=== PATIENT | male | born 1965 | race Caucasian/White ===

== ENCOUNTER → 2018-12-02 10:18 | Outpatient (CLI) | payer OTHER, SELFPAY ==
--- NOTE | 2018-12-02 10:21 | DI.RAD.S_ITS ---
PROCEDURE: XR HIP W PEL IF DONE LT 2V INDICATIONS: hip pain decreased range of motion TECHNIQUE: 2 views of the hip were acquired. COMPARISON: None. FINDINGS: Bones: Moderate to severe left hip joint osteoarthritic changes are seen with joint space narrowing, subchondral sclerosis and subchondral cyst formation. Marginal osteophyte formation is also noted. No fractures or dislocations. No suspicious bony lesions. No evidence of avascular necrosis of femoral head. The visualized pelvic ring appears intact. Soft tissues: No suspicious soft tissue calcifications or masses. IMPRESSION: Moderate to severe left hip joint osteoarthritis. No fracture or dislocation. No evidence of avascular necrosis. Dictated by: Raymundo Ko M.D. on 12/02/2018 at 10:58 Approved by: Raymundo Ko M.D. on 12/02/2018 at 11:10
--- NOTE | 2018-12-02 10:21 | DI.RAD.S_ITS ---
PROCEDURE: XR LUMBAR SPINE 2-3V INDICATIONS: hip pain decreased range of motion TECHNIQUE: 3 views of the lumbar spine were acquired. COMPARISON: [facility], , -SPINE 2-3 VIEWS, 01/21/2015, 13:45. FINDINGS: Bones: 5 [id number] vertebrae are present. There is normal bony alignment. Moderate degenerative disc disease at L5-S1 level is seen with degenerative endplate changes and bilateral facet arthrosis. No vertebral body compression fractures. No suspicious bony lesions. Soft tissues: Overlying bowel gas pattern is normal. No suspicious soft tissue calcifications. IMPRESSION: Degenerative disc disease at L5-S1 level. No compression fracture or spondylolisthesis. Dictated by: Raymundo Ko M.D. on 12/02/2018 at 11:10 Approved by: Raymundo Ko M.D. on 12/02/2018 at 11:11
== END ==
PROVIDERS: Family Provider Family Medicine; PCP Family Medicine; Visit Provider Family Medicine
DX: M16.12 Unilateral primary osteoarthritis, left hip (principal); M51.37 Other intervertebral disc degeneration, lumbosacral region
CPT/HCPCS: 72100; 73502; 81001

== ENCOUNTER → 2018-12-13 12:17 | Outpatient (CLI) | payer OTHER, SELFPAY ==
[2018-12-13 12:59] LABS: Add Manual Diff / Slide Review NO; Basophils Absolute Auto 100 /uL (0-100); Basophils Percent Auto 1.2 % (0-2); Eosinophils Absolute Auto 100 /uL (0-450); Eosinophils Percent Auto 1.5 % (2-4); Hematocrit 43.5 % (41-53); Hemoglobin 15.3 g/dL (13.5-17.5); Lymphocytes Absolute Auto 2600 /uL (1100-4500); Lymphocytes Percent Auto 33.3 % (25-40); Mean Corpuscular HGB Conc 35.2 % (30-36); Mean Corpuscular Hemoglobin 31.4 PG (26-34); Monocytes Absolute Auto 500 /uL (0-900); Neutrophils Absolute Auto 4500 /uL (1500-7000); Platelet Count 278 X10^3/uL (150-400); Red Blood Cell Count 4.88 X10^6/uL (4.5-5.9); Red Cell Distribution Width 13.2 % (11.6-14.8); White Blood Cell Count 7.7 X10^3/uL (4.5-11.0)
[2018-12-13 13:48] LABS: Blood Urea Nitrogen 18 mg/dL (9-20); Calcium 9.5 mg/dL (8.4-10.2); Carbon Dioxide 26 mmol/L (22-32); Chloride 104 mmol/L (98-107); Estimated Glomerular Filt Rate > 60.0 mL/min (>60); Glucose 117 mg/dL (70-100); HEMOLYSIS < 15 (0-50); Potassium 4.2 mmol/L (3.4-5.1); Sodium 140 mmol/L (137-145)
[2018-12-13 14:57] LABS: Hemoglobin A1C% w Est Avg Glu 6.3 % (4.0-6.0)
== END ==
PROVIDERS: Family Provider Family Medicine; PCP Family Medicine; Visit Provider Orthopaedic Surgery
DX: Z01.818 Encounter for other preprocedural examination (principal); Z01.812 Encounter for preprocedural laboratory examination; N39.9 Disorder of urinary system, unspecified; Z13.1 Encounter for screening for diabetes mellitus; R73.9 Hyperglycemia, unspecified
CPT/HCPCS: 36415; 80048; 83036; 85025; 93005

== ENCOUNTER → 2018-12-31 10:51 | Outpatient (CLI) | payer OTHER, SELFPAY ==
--- NOTE | 2018-12-31 10:52 | DI.RAD.S_ITS ---
PROCEDURE: FL UPPER GI W AIR INDICATIONS: esophgeal diverticulum COMPARISON: None. FINDINGS: KUB: Preprocedural brand leader film demonstrates a normal bowel gas pattern. No suspicious abdominal calcifications. Visualized solid organ contours appear normal. Bony structures appear unremarkable. Esophagus: Esophageal mucosa is normal on air-contrast views. On single-contrast views, there is normal esophageal peristalsis. No strictures, extrinsic mass effects, or diverticula. Severe esophageal reflux, which reaches the level of the thoracic inlet. Stomach: The stomach is normally distensible, with normal rugal fold thickness. No mucosal masses or ulcers. Pylorus and duodenal bulb appear normal in morphology. Duodenal folds are normal in thickness as well. IMPRESSION: Severe esophageal reflux. No diverticulum radiographically identified. Dictated by: Jason Cooper M.D. on 12/31/2018 at 12:17 Approved by: Jason Cooper M.D. on 12/31/2018 at 12:19
== END ==
PROVIDERS: Family Provider Family Medicine; PCP Family Medicine; Visit Provider Family Medicine
DX: K22.5 Diverticulum of esophagus, acquired (principal); K21.9 Gastro-esophageal reflux disease without esophagitis
CPT/HCPCS: 74247

== ENCOUNTER → 2019-01-09 15:27 | Outpatient (CLI) | payer OTHER, SELFPAY ==
--- NOTE | 2019-01-09 15:30 | DI.ECHO.S_ITS ---
[facility]---------+ [facility] +---------+ : : [address] : : : : [id number] : : : : Phone: [phone]+ Echocardiogram Report + + :Name: ANGELIC RICO Study Date: 01/09/2019 Height: 70 in : :[facility] Weight: 213 lb : : Gender: Male BSA: 2.1 m2 : :: 1965 Age: 53 yrs BP: 178/82 mmHg: :Reason For Study: Arrhythmia, SVT : : Performed By: Elisabeth Arora : :Referring: ANNI YOST : + + Interpretation Summary Left ventricular size is at the upper limits of normal with normal left ventricular wall thickness. Left ventricular systolic function is normal without focal wall motion abnormalities with the ejection fraction grossly estimated to be 50-60% with considerable [id number] variability because of frequent PVCs. Diastolic function could not be accurately assessed due to unobtainable data. The right ventricle is normal in size and function. The right ventricular systolic pressure is estimated to be at least 31 mmHg based on an estimated right atrial pressure of 3 mm Hg. The left atrium is severely dilated and the right atrium is moderately dilated. There is mild mitral regurgitation but there is no other significant valvular heart disease. The ascending aorta and aortic arch are at the upper limits of normal in size. The heart rate ranged between 81-99 bpm with frequent PVCs during the exam. Procedure: A two-dimensional transthoracic echocardiogram with color flow and Doppler was performed. The study quality was technically good. There is no prior echocardiogram noted for this patient. The heart rate ranged between 81- 99 bpm during the study. The patient had frequent PVCs during the exam. Left Ventricle: Left ventricular size is at the upper limits of normal. There is normal left ventricular wall thickness. Left ventricular systolic function is normal without focal wall motion abnormalities. Left ventricular ejection fraction is estimated to be 50-60% with beats to be variability because of frequent PVCs. Diastolic function could not be accurately assessed due to unobtainable data. Right Ventricle: The right ventricle is normal in size and function. Atria: The left atrium is severely dilated. The right atrium is moderately dilated. The interatrial septum is intact with no evidence for an atrial septal defect. Mitral Valve: The mitral valve is grossly normal. There is mild mitral regurgitation. Aortic Valve: The aortic valve is trileaflet. The aortic valve opens well. No aortic regurgitation is present. Tricuspid Valve: The tricuspid valve is normal in structure and function. There is trace tricuspid regurgitation. The right ventricular systolic pressure is estimated to be at least 31 mmHg based on an estimated right atrial pressure of 3 mm Hg. Pulmonic Valve: The pulmonic valve is normal in structure and function. There is no pulmonic valvular regurgitation. There is no other significant valvular heart disease. Great Vessels: The aortic root is normal size. The ascending aorta is at the upper limits of normal in size. The aortic arch is at the upper limits of normal in size. The IVC is dilated (diameter is greater than 2.1 cm) yet it collapses greater than 50% with a sniff. This suggests a right atrial pressure of 8 mm Hg. Pericardium/ Pleura There is no pericardial effusion. There is no pleural effusion. MMode/2D Measurements & Calculations LVIDd: 5.8 cm Ao root diam: 3.6 cm LVIDs: 4.7 cm Aortic Jxn: 3.1 cm FS: 19.2 % asc Aorta Diam: 3.3 cm EPSS: 1.7 cm Ao Arch Diam (Prox Trans): 3.0 cm IVSd: 1.0 cm LVPWd: 1.1 cm LV calvo. diameter/BSA (cm/m^2): 2.7 LV sys. diameter/BSA (cm/m^2): 2.2 LA dimension: 4.8 cm RA long axis: 6.2 cm LA A2 area: 27.6 cm2 RA area: 26.5 cm2 LA A4 area: 29.7 cm2 RA vol: 96.6 ml LA length (vol): 6.4 cm RA : 45.0 ml/m2 LA vol: 107.9 ml IVC diam: 2.4 cm LA vol index: 50.3 ml/m2 RVDd major: 5.7 cm RVD1 (basal): 4.2 cm RVD2 (mid): 3.4 cm Doppler Measurements & Calculations Ao V2 max: 159.5 cm/sec MV P1/2t: 63.3 msec Ao V2 mean: 108.8 cm/sec Ao max P.2 mmHg Ao mean P.4 mmHg Ao V2 VTI: 33.8 cm TR max jose: 267.6 cm/sec MV P1/2t max jose: 107.5 cm/sec TR max P.7 mmHg MVA(P1/2t): 3.5 cm2 PA V2 max: 104.1 cm/sec PA V2 mean: 66.4 cm/sec PA mean P.1 mmHg PA Accel Time: 0.15 sec Reading Physician:PAU
== END ==
PROVIDERS: PCP Family Medicine; Visit Provider Family Medicine
DX: I34.0 Nonrheumatic mitral (valve) insufficiency (principal); I47.1 Supraventricular tachycardia
CPT/HCPCS: 93306

== ENCOUNTER → 2019-03-28 11:40 | Outpatient (CLI) | payer OTHER, SELFPAY ==
[2019-03-28 11:54] LABS: RBC Urine None Seen (0-5/HPF)
[2019-03-28 12:09] LABS: Hematocrit 42.8 % (41-53); Hemoglobin 14.9 g/dL (13.5-17.5); Mean Corpuscular HGB Conc 34.8 % (30-36); Mean Corpuscular Hemoglobin 31.4 PG (26-34); Mean Corpuscular Volume 90.2 fL (80-100); Platelet Count 234 X10^3/uL (150-400); Red Blood Cell Count 4.74 X10^6/uL (4.5-5.9); Red Cell Distribution Width 13.5 % (11.6-14.8); White Blood Cell Count 6.4 X10^3/uL (4.5-11.0)
[2019-03-28 12:10] LABS: Appearance Urine UA CLEAR; Bilirubin Urine UA NEGATIVE (NEGATIVE); Color Urine UA YELLOW; Glucose Urine UA NEGATIVE (Negative); Ketones Urine UA NEGATIVE (NEGATIVE); Leukocyte Esterase Urine UA NEGATIVE (NEGATIVE); Nitrite Urine UA NEGATIVE (Negative); Occult Blood Urine UA NEGATIVE (Negative); Protein Urine UA NEGATIVE (Negative); Urobilinogen Urine UA 0.2 E.U./dL (0.2)
[2019-03-28 12:21] LABS: BUN Creatinine Ratio 21.1 (6-22); Blood Urea Nitrogen 19 mg/dL (9-20); Calcium 9.4 mg/dL (8.4-10.2); Carbon Dioxide 29 mmol/L (22-32); Chloride 105 mmol/L (98-107); Estimated Glomerular Filt Rate > 60.0 mL/min (>60); Glucose 135 mg/dL (70-100); HEMOLYSIS < 15 (0-50); Potassium 4.9 mmol/L (3.4-5.1); Sodium 140 mmol/L (137-145)
[2019-03-28 12:22] LABS: Hemoglobin A1C% w Est Avg Glu 6.1 % (4.0-6.0)
[2019-03-28 13:07] LABS: Bacteria Urine None Seen
[2019-03-28 13:08] LABS: Culture Indicated Urine Cult Not Indicated; Mucus Urine 1+ (Negative); Squamous Epithelial Cell Urine 0-1 /HPF (0-5/HPF); WBC Urine 1-5/HPF (0-5/HPF)
== END ==
PROVIDERS: PCP Family Medicine; Visit Provider Orthopaedic Surgery
DX: N39.0 Urinary tract infection, site not specified (principal); R73.9 Hyperglycemia, unspecified; Z01.818 Encounter for other preprocedural examination
CPT/HCPCS: 36415; 80048; 81001; 83036; 85027

== ENCOUNTER 2019-04-22 10:15 | Inpatient (IN) | payer OTHER, SELFPAY ==
[2019-04-10 08:50] VITALS: BMI 31.2
[2019-04-22] VITALS (9 sets, daily range): BP systolic 113–179; BP diastolic 62–85; PULSE 60–85; RESP 12–16; TEMP 36.4–36.8; O2SAT 94–98; BMI 30.8
--- NOTE | 2019-04-22 | DI.RAD.S_ITS ---
PROCEDURE: [id number] W PEL IF PERFORMED INDICATIONS: INTRA OPERATIVE ANTERIOR LEFT HIP TECHNIQUE: Multiple intraoperative fluoroscopic views of the left hip were acquired. COMPARISON: None. FINDINGS: Bones: Multiple intraoperative views demonstrate ORIF of the left hip. IMPRESSION: Multiple intraoperative fluoroscopic views of left hip ORIF. Dictated by: Donna Green M.D. on 04/22/2019 at 17:53 Approved by: Donna Green M.D. on 04/22/2019 at 17:54
--- NOTE | 2019-04-22 06:00 | DI.RAD.S_ITS ---
PROCEDURE: XR HIP W PEL IF DONE LT 2V INDICATIONS: left PARKER, anterior TECHNIQUE: 2 view(s) of the hip acquired. COMPARISON: None. FINDINGS: Bones: Patient is status post left hip arthroplasty, with hardware components in expected positions. The hip joint appears congruent. The visualized bony structures appear intact. Soft tissues: Overlying postoperative changes are noted. No suspicious soft tissue densities. IMPRESSION: Status post left ORIF. Dictated by: Donna Green M.D. on 04/22/2019 at 18:21 Approved by: Donna Green M.D. on 04/22/2019 at 18:21
[2019-04-22] MEDS: ACETAMINOPHEN 325 MG TABLET 975 MG PO ×2 (10:52→21:19)
[2019-04-22] MEDS: CELECOXIB 200 MG CAPSULE PO (10:52)
[2019-04-22] MEDS: PREGABALIN 75 MG CAPSULE PO (10:54)
[2019-04-22] MEDS: LACTATED RINGERS 1,000 ML 42 ML IV ×2 (11:20→16:49)
[2019-04-22] MEDS: VANCOMYCIN 1,000 MG/200 ML PIGGYBACK 200 MG IV (11:23)
[2019-04-22] MEDS: FAMOTIDINE 20 MG/50 ML PIGGYBACK 200 MG IV (12:51)
--- NOTE | 2019-04-22 12:59 | PM.PREOP ---
Pre-operative Note Interval Note History & Physical reviewed/Exam performed by Physician: Yes Changes to H&P: No
--- NOTE | 2019-04-22 12:59 | PM.OP.1 ---
Operative Date/Time/Diagnoses Date of procedure: 04/22/19 Time of procedure: 13:29 Pre-op diagnosis: left hip OA Post-op diagnosis: same Procedure & Clinicians Procedure: Left hip OA Same procedure as scheduled: Yes Indications: The patient has had progressively worsening left hip pain with radiographic changes consistent with arthritis. Non-operative management has failed and the patient has requested total hip replacement. The risks, benefits and alternatives to surgery were discussed with the patient prior to proceeding. Risks discussed included, but were not limited to, failure to relieve pain, leg length discrepancy, dislocation, stiffness, infection, nerve damage, deep venous thrombosis, pulmonary embolism, stroke, coma, heart attack, permanent paralysis and , as well as the potential need for eventual revision of the prosthetic. Surgeon: Julia Mahoney Director Financial Services: Charisma Chacko Anesthesia Type: General and Spinal Operative Notes Findings: Severe left hip osteoarthritis, good quality bone, acceptable stability Closure Type: primary Specimen(s): none sent Prosthetic devices, grafts, tissues, transplants, or devices: [employer]hew 54 R3 cup, size 6 high offset anthology, -3 x 36mm Estimated Blood Loss (mL): 250 Blood products transfused: none Procedure in detail: The patient was brought to the operating room. Patient was carefully positioned in the supine position. Time-out was performed and antibiotics were given. Anesthesia was induced. He was positioned in the on the table in order to allow hyperextension of the hip. The left lower extremity was prepped and draped in a standard sterile fashion. An anterior left hip incision was made 1 fingerbreadth lateral to the anterior superior iliac spine and extended distally towards the greater trochanter. Dissection was carried out through skin and subcutaneous tissues. The skin and subcutaneous tissues were carefully injected with Marcaine with epi. Superficial hemostasis was achieved. The fascia over the tensor fascia elodia was defined and incised with a knife. Two Allis clamps were used to grasp the fascia. Tensor fascia elodia was retracted laterally. A gelpi retractor was placed. Dissection was carried out down along the neck. The circumflex vessels were carefully identified and cauterized with the Aqua Mantis. There was good visualization of the femoral neck. A Cobra was placed superior to the neck and the gluteus fibers were carefully stripped from that superior aspect of the capsule. A 2nd retractor was placed along the inferior aspect of the neck. The rectus insertion along the capsule was partially released. A 3rd retractor that was then gently placed over the rim of the acetabulum under the rectus. Capsule was carefully incised and released from the intertrochanteric line circumferentially superior to the mid sagittal line and inferiorly to the mid sagittal line until the lesser trochanter was palpable. A tag stitch was placed both in the superior and inferior limb of the capsular insertion. Along the acetabulum capsule was also released up to the mid sagittal 12:00 position. A portion of the labrum was resected. A saw was used to perform an osteotomy at the level of the intertrochanteric line and the junction of the superior femoral neck leaving approximately 1 finger breath of residual inferior neck above the lesser trochanter. A 2nd cut was made along the femoral neck at the base of the head and a napkin ring of neck was removed. Corkscrew was placed in the femoral head and the head was removed without difficulty. Retractors were then repositioned around the acetabulum. Residual labrum was resected and additional osteophytes were removed. A reamer that was 4 mm below the templated size was placed by hand in the acetabulum and it was reamed to centralize the acetabulum. It was then reamed up to 2 under the templated size and fluoroscopy was brought in to confirm the position of the reaming and depth of reaming. I reamed 1 under the anticipated size. A trial cup was placed and noted that it was appropriately sized and fluoroscopy confirmed position and depth. The component was open and inserted without difficulty fluoroscopic imaging was used to confirm that the cup had been adequately seated and was well positioned. Neutral poly liner was placed. The cup was tested and noted to be stable. Attention was then directed to the femur. The femur was gently hyperextended additional capsular release was performed as needed in order to allow adequate visualization of the proximal femur with elevation of the femur. Patient was placed in a hyperextended slightly adducted position with maximum external rotation. Box osteotome was used to check for any residual neck as well as sclerotic bone along the trochanter. [place] pepper was placed in the femur. Additional broaching was performed. Canal finder was used to determine the alignment of the canal and position. Size 1 broach was placed. The canal was then appropriately broached up to the templated size as long as there was adequate stability of the broach and serial advancement of the broach without excessive impingement. Specific attention was directed at avoiding varus attempting to direct the distal aspect of the broach more anteriorly and avoiding excessive anteversion. Trial reduction showed acceptable range of motion, good stability, no posterior impingement, orthodox of leg length and appropriate lateral shuck. I also hyperflexed the hip and checked that there was no impingement anteriorly and there was good stability with flexion, abduction and internal rotation. Extended offset stem was more stable in max hyperextension and external rotation. The stem was placed without difficulty. Repeat trial reduction and x-ray showed acceptable overall position, length, and no evidence of the femoral fracture. Final head was placed. Wound was meticulously irrigated with normal saline. The hip was reduced and additional Exparel and Marcaine were injected. The capsule was closed with interrupted nonabsorbable sutures. The fascia of the tensor was closed with interrupted and running Vicryl. No drain was placed. Any tensor fascia elodia muscle that appeared to be contused or injured which was a minimal amount was carefully resected. Capsule around the tensor was injected with Exparel and Marcaine. The skin was closed with barbed stitches for the subcutaneous tissue and skin. We also used surgical glue. The wound was dressed sterilely. Brief Betadine soak was also used and was meticulously irrigated with normal saline. Patient was transferred to recovery room in satisfactory condition. Complications: none Post-operative Condition: stable Disposition: Acute Care Plan for aftercare: The patient will be maintained on a standard total hip replacement protocol with weight bearing as tolerated and anterior hip precautions. The patient will receive Aspirin and sequential compression devices for DVT prophylaxis. The patient will be discharged home when safe for the home environment.
[2019-04-22] MEDS: CEFAZOLIN 2 GM/100 ML FROZ.PIGGY IV ×2 (13:45→21:20)
--- NOTE | 2019-04-22 14:26 | SUR.OPER ---
Supine, head on pillow, torso on padded Pilger table. Patient's groin at post end of table. Non-operative arm on foam padding with blanket over arm, taped securely to bed several times. Operative arm secured on arm boards <90 degrees abduction.
[2019-04-22] MEDS: BUPIVACAINE 0.25% W/ EPI 30 ML VIAL 60 ML INJ (14:32)
[2019-04-22] MEDS: BUPIVACAINE LIPOSOME 266 MG/20 ML VIAL INJ (14:33)
[2019-04-22] MEDS: SODIUM CHLORIDE IRRIG SOLUTION 250 ML, POVIDONE-IODINE SPONGE STICKS 1 APPLIC IRR (14:34)
[2019-04-22] MEDS: LACTATED RINGERS 1,000 ML 125 ML IV (19:10)
[2019-04-22] MEDS: DOCUSATE 100 MG CAPSULE PO (21:19)
[2019-04-22] MEDS: ASPIRIN EC 81 MG TABLET PO (21:19)
[2019-04-23 01:15] VITALS: BP 142/86; PULSE 60; RESP 16; TEMP 37; O2SAT 93
[2019-04-23] MEDS: LACTATED RINGERS 1,000 ML 125 ML IV (04:42)
[2019-04-23 04:45] VITALS: BP 126/90; PULSE 60; RESP 19; TEMP 36.9; O2SAT 97
[2019-04-23] MEDS: CEFAZOLIN 2 GM/100 ML FROZ.PIGGY IV (06:05)
[2019-04-23 07:10] LABS: Hematocrit 37.5 % (41-53)
[2019-04-23 08:00] VITALS: BP 114/69; PULSE 70; RESP 16; TEMP 36.9; O2SAT 98
--- NOTE | 2019-04-23 08:09 | PM.PNPO.1 ---
Subjective Subjective Date Patient Seen: 04/23/19 Time Patient Seen: 08:09 Interval history: POD 1 s/p L PARKER with Dr. Mahoney. Pain well controlled last night. He had to have an in and out catheter last night. He notes some previous symptoms in the past. He has not been up with PT yet. Exam Vital Signs (past 8 hours): - 04/23/19 01:15 04/23/19 04:45 Temperature 98.6 F 98.4 F Pulse Rate 60 60 Respiratory Rate 16 19 Blood Pressure 142/86 H 126/90 Pulse Oximetry 93 97 Oxygen Delivery Method Nasal Cannula Oxygen Flow Rate 0 Narrative Exam Narrative: Patient sitting in bedside chair in NAD. He is alert and oriented X3. Calves are soft, compressible, and nontender bilaterally. Sensation intact to light touch throughout BLEs. Objective Labs Result Diagrams: 04/23/19 06:47 Labs: Laboratory Results - last 24 hr 04/23/19 06:47 Hgb 13.0 L Hct 37.5 L Assessment & Plan Post-op Postoperative Procedures: Procedures Operation Date: 04/22/19 12:15 Actual Procedures Side Surgeon p Total Hip Arthroplasty/Anterior Approach Left Julia Deya Mahoney MD Patient will start Flomax today. He will mobilize with PT today. Continue current pain control. Continue ASA for VTE prophylaxis. If patient is voiding, mobilizing safely, and pain adequately controlled he could go home tonight or tomorrow morning. Quality VTE Deep Vein Thrombosis/Pulmonary Embolism Present on Admission: No
[2019-04-23] MEDS: ACETAMINOPHEN 325 MG TABLET 975 MG PO (10:01)
[2019-04-23] MEDS: DOCUSATE 100 MG CAPSULE PO (10:02)
[2019-04-23] MEDS: TAMSULOSIN 0.4 MG CAPSULE PO (10:02)
[2019-04-23] MEDS: ASPIRIN EC 81 MG TABLET PO (10:02)
--- NOTE | 2019-04-23 10:13 | PT.IIE ---
Current Diagnoses Unilateral primary osteoarthritis, left hip (04/22/19) Surgery Performed Operation Date: 04/22/19 12:15 Actual Procedures p Total Hip Arthroplasty/Anterior Approach(Left) - Julia Mahoney MD Surgical History (Last Updated 04/10/19 @ 09:25 by Tyra Knight, RN) Anesthesia (Resolved) H/O vasectomy (Acute) History of arthroscopy of both knees (Acute) Hx of appendectomy (Acute) Hx of hernia repair (Acute) Hx of tonsillectomy (Acute) Status post appendectomy (Resolved 1996) Status post hernia repair (Resolved) Medical History (Last Updated 04/10/19 @ 09:25 by Tyra Knight RN) Ankle pain (Chronic 2011) Anxiety (Chronic) Asthma (Acute) Asymptomatic PVCs (Acute) Chicken pox (Resolved) Cleft palate and cleft lip (Acute) Foot pain (Chronic 2011) Hiatal hernia (Acute) HLD (hyperlipidemia) (Acute) Hypertension (Chronic 1992) Osteoporosis (Chronic 2013) Pre-diabetes (Acute) Shoulder pain (Chronic 2002) Sleep apnea (Acute) SVT (supraventricular tachycardia) (Acute) Physical Therapy Inpatient Evaluation/Re-Eval M1 PT/OT-IP Prior Functional Status Start: 04/23/19 08:18 Freq: NEEDED Status: Active Protocol: Document 04/23/19 08:30 (Rec: 04/23/19 10:13 [email or web address]) Medical Review Prior Functional Status Medical History Reviewed Yes Diet/Fluid Consistency Regular Communication No deficits noted. Able to make needs known Mobility and Gait independent with mobility at home and community without using AD. Increased time taken to bend over and sit to stand due to hip pain Activities of Daily Living and IADL's independent with ADLs and IADLS without using AD. He was able to drive also. Social History Household Members spouse,children Living Arrangements House Number of Floors (Floors) One Floor Number of Stairs To Enter/Railing? 2 KACEY with wall support Home Environment Standard Height Toilet,Walk in Shower Home Equipment Front Wheel Walker,Straight Cane,Raised Toilet Seat w/ Armrests,Hand Held Shower Employment Status Unemployed Additional Social History Comment Pt lives in [place] with his and 2 dtrs and some pets. Pt expects to participate outpatient therapy at [facility] M2 PT-IP Current Condition Start: 04/23/19 08:18 Freq: NEEDED Status: Active Protocol: Document 04/23/19 08:30 HH (Rec: 04/23/19 10:13 [email or web address]) Physical Therapy Current Condition Current Condition Evaluation Date 04/23/19 Treatment Diagnosis L PARKER (anterior approach), difficulty in walking Onset Date 04/22/19 Precautions Anterior Hip Precautions No Hip Extension,No Hip External Rotation Weight Bearing Status Weight Bearing Status Weight Bear as Tolerated M3 PT-IP Subjective Start: 04/23/19 08:18 Freq: NEEDED Status: Active Protocol: Document 04/23/19 08:30 HH (Rec: 04/23/19 10:13 [email or web address]) Subjective Physical Therapy Visit Type Type Initial Evaluation Visit Start Time 08:30 Visit Stop Time 08:55 Total Visit Minutes 25 Number of FINANCIAL SALES ADVISOR Visits 0 Physical Therapy Visit Comments Patient Comments I want to use the bathroom Patient Goals To return home today with family. Therapy Pain Assessment Pain Present Pain Present Denied Pain M4 PT-IP Mobility and Gait Start: 04/23/19 08:18 Freq: NEEDED Status: Active Protocol: Document 04/23/19 08:30 HH (Rec: 04/23/19 10:13 [email or web address]) PT-Bed Mobility Assessment Scooting Scooting to Edge of Bed Standby Assistance PT-Transfer Assessment Sit to and From Stand Sit to and from Stand Standby Assistance,Use of Upper Extremities Equipment Transfer Assistive Device Gait Belt,Front Wheeled Walker Orthotic/Prosthetic Devices or Brace: No Transfers Transfer Destination Bed,Chair,Toilet Transfer Technique Stand Step Pivot Transfer Ability Level of Assist Standby Assistance,Use of Upper Extremities Comments Mobility Comments Pt was in chair upon assessment. He was able to sit <>stand, transfers with FWW SBA. He does lean towards his R side and used stagger stance during sit <> stand to reduce WB on L. Pt denies pain but did report he has been very used to this techniques due to his previous hip pain. Pt was aware to use small steps to avoid excessive hip ER. Gait Assessment Gait Gait Assistance Required: Standby Assistance Distance (Feet) 240 Able to Maintain Weight Bearing Status Yes During Gait Assistive Devices Assistive Device Gait Belt,Front Wheeled Walker Orthotic/Prosthetic Devices or Brace: No Gait Deviations General Gait Pattern Antalgic,Decreased Stride Length,Decreased Feet Clearance Factors Limiting Gait Function Factors Limiting Gait Function Decreased Activity Tolerance, Decreased Strength,Limited Range of Motion,Pain,Poor Balance Comments Gait Comments Pt amb 240 ft with FWW and SBA . Pt does have an antalgic gait with reduced stance phase on L LE. Needed cues to advance his RLE for longer step. Pt denies pain during session and very aware of his post op precautions by avoiding excessive hip extension and external rotation. Stair Climbing Assessment Technique/Endurance Stair Climbing Direction Ascend Stair Climbing Technique Step to Step Number of Steps Climbed 3 Query Text: Stair Climbing Set # Repetitions (reps) 2 Comments Stair Climbing Comments ascend= lead with RLE descend= lead with LLE PT-Balance Assessment Sitting Balance and Reactions Static Sitting Balance Ability Normal Dynamic Sitting Balance Ability Normal Standing Balance and Reactions Static Standing Balance Ability Normal Dynamic Standing Balance Ability Normal M5 PT-IP Objective Assessments Start: 04/23/19 08:18 Freq: NEEDED Status: Active Protocol: Document 04/23/19 08:30 HH (Rec: 04/23/19 10:13 [email or web address]) Orientation Orientation/Cognition Level of Alertness Alert Orientation Name,Age,Birthday,Month,Date, Year,Day of Week,Place, Situation Language Function Ability No Deficits Noted Safety Awareness Understands Safety Issues Memory Description No Deficits Noted Gross Range of Motion Upper Extremity ROM Assessment Within Functional Limits Lower Extremity ROM Assessment Left Impaired Strength Upper Extremity Strength Assessment Within Functional Limits Lower Extremity Strength Assessment Left Impaired Hip 4/5 Knee 4+/5 Coordination Assessment Gross Coordination Gross Coordination WNL Sensation Assessment Sensation Gross Sensation WNL Light Touch Intact Proprioception (Position) Intact Sensation Description Numbness Comments Sensation Comments numbness at surgical site Muscle Tone Muscle Tone WNL Yes M6 PT-IP Treatment Start: 04/23/19 08:18 Freq: NEEDED Status: Active Protocol: Document 04/23/19 08:30 HH (Rec: 04/23/19 10:13 [email or web address]) Physical Therapy Treatment Exercises Exercises Ankle Pumps,Gluteal Sets,Quad Sets,Heel Slides Education Education Provided Precautions,Weight Bearing Status,Post-Op Packet,Safety Other Treatments Other Treatment Performed transfer/ sit <>stand with even steps to improve WB on LLE use of belt to unweight LLE during supine to sit M7 PT-IP Assessment and Plan Start: 04/23/19 08:18 Freq: NEEDED Status: Active Protocol: Document 04/23/19 08:30 (Rec: 04/23/19 10:13 [email or web address]) PT Summary Assessment and Plan Potential Rehabilitation Potential Excellent Status of Condition at Evaluation Stable Summary Impairments Pain,ROM,Strength,Balance,Bed Mobility,Transfers,Gait Assessment Summary Pt is a low complexity with s/ p L PARKER (anterior approach) yesterday. Upon assessment, pt 's mobility is very close to baseline who is able to perform transfers and amb with FWW SBA. He is also very well aware of his post op precautions by avoiding excessive hip extension and external rotation. Educated pt on bed mobility by using a belt and increased WB on LLE during transfers. Pt is safe to go home at this point with family assistance and outpatient therapy service to improve his functional mobility and strength. Goals Bed Mobility Goal Independent Transfer Goal Independent,Front Wheeled Walker Gait Goal Independent,Front Wheel Walker Gait Distance 500 Other Goals 2 KACEY with wall support Days to Meet Goals 2 Frequency of Treatment Frequency Of Treatment Twice a Day Treatment Plan Physical Therapy Treatment Plan Bed Mobility Training,Transfer Training,Gait Training, Therapeutic Exercise,Balance Retraining,Post Op Education, Discharge Planning,Hot or Cold Pack,Neuromuscular Re-ed Other Recommendations and Next Treatment bed mobility with a belt Focus transfers with even steps gait training to normalize gait pattern Recommendations To Nursing Amount of Assist Needed Standby Assistance Discharge Recommendations PT Discharge Recommendations Home with Assistance, Outpatient PT
[2019-04-23] MEDS: OXYCODONE IR 5 MG TABLET PO (13:41)
[2019-04-23] MEDS: VITAMIN E 400 UNIT CAPSULE PO (13:41)
--- NOTE | 2019-04-24 14:51 | CM.IDA ---
Initial DCP Assessment Note/Late Entry: Pt is a 53 yo male, resident of [place], now POD#1 from Left Hip surgery w/ Dr Mahoney PCP: Dr Yudy Herrera: [employer] Plan Reviewed chart, pt discussed in multidisciplinary rounds this morning. Therapy has cleared pt for return home w/family to assist and pt has planned for home, DC order from [facility] has already been initiated this morning. No needs expected from DC planning team although will remain available in case this changes today. SPRING Chamberlain
== END 2019-04-23 14:20 | disposition home or self-care (01) | DRG 470 ==
PROVIDERS: Admitting Provider Orthopaedic Surgery; PCP Family Medicine; Visit Provider Orthopaedic Surgery
PROC: 0SRB02Z Replacement of Left Hip Joint with Metal on Polyethylene Synthetic Substitute, Open Approach (ICD-10-PCS; CPT 27130; principal; 2019-04-22 12:15)
DX: M16.12 Unilateral primary osteoarthritis, left hip (principal); G47.33 Obstructive sleep apnea (adult) (pediatric); I10 Essential (primary) hypertension
CPT/HCPCS: 36415; 73502; 73503; 76000; 85014; 85018; 97161; 97530; C1776; C9290; J0171; J0690; J1100; J2250; J2274; J2405; J2704; J3010

== ENCOUNTER → 2019-07-07 11:19 | Outpatient (CLI) | payer OTHER, SELFPAY ==
[2019-04-22 19:01] VITALS: BMI 30.8
--- NOTE | 2019-07-07 11:21 | DI.MRI.S_ITS ---
PROCEDURE: MR LUMBAR SPINE WO CON INDICATIONS: left leg weekness TECHNIQUE: Noncontrast sagittal T1 spin echo and T2 fast echo, sagittal STIR, axial T1 and T2 fast spin echo through the lumbar spine. In cases with scoliosis, additional coronal T2 fast spin echo may be performed. COMPARISON: [facility], CR, XR LUMBAR SPINE 2-3V, 12/02/2018, 10:24. FINDINGS: Image quality: Excellent. Alignment and Curvature: There is normal bony alignment. Bone Marrow: Mild reactive endplate changes noted adjacent to the L5-S1 disc.. No acute vertebral body compression fractures. Spinal Cord: Conus medullaris terminates at the L1 level. Visualized cord demonstrates normal signal and size. Paraspinous Soft Tissues: No paravertebral masses. L1-L2: Normal appearance. L2-L3: Normal appearance. L3-L4: Normal appearance. L4-L5: Slight loss of disc signal. Mild, diffuse disc bulge. No central stenosis. No neural foraminal narrowing. No neural compression. L5-S1: Loss of disc signal and mild loss of disc height. Mild, diffuse disc bulge. Mild bilateral facet hypertrophy. No central stenosis. No neural foraminal narrowing. No neural compression. IMPRESSION: 1. Mild to moderate L5-S1 degenerative disc disease. Mild L4-L5 degenerative disc disease. 2. Mild L5-S1 facet arthropathy. 3. No central stenosis. 4. No neural foraminal narrowing. 5. No neural compression Dictated by: Nargis Reno MD, PhD on 07/07/2019 at 14:35 Approved by: Nargis Reno MD, PhD on 07/07/2019 at 14:39
== END ==
PROVIDERS: PCP Family Medicine; Referring Provider Orthopaedic Surgery; Visit Provider Family Medicine
DX: R29.898 Other symptoms and signs involving the musculoskeletal system (principal); M54.5 Low back pain; M51.36 Other intervertebral disc degeneration, lumbar region; M51.37 Other intervertebral disc degeneration, lumbosacral region; M47.816 Spondylosis without myelopathy or radiculopathy, lumbar region; M47.817 Spondylosis without myelopathy or radiculopathy, lumbosacral region
CPT/HCPCS: 72148

== ENCOUNTER → 2020-02-12 11:00 | Outpatient (CLI) | payer OTHER, SELFPAY ==
[2019-04-22 19:01] VITALS: BMI 30.8
[2020-02-12 12:00] LABS: Alanine Aminotransferase 55 IU/L (<50); Albumin 4.5 g/dL (3.5-5.0); Albumin Globulin Ratio 1.8 (1.0-2.8); Alkaline Phosphatase 54 U/L (38-126); Aspartate Aminotransferase 44 IU/L (17-59); BUN Creatinine Ratio 17.1 (6-22); Blood Urea Nitrogen 19 mg/dL (9-20); Calcium 9.5 mg/dL (8.4-10.2); Carbon Dioxide 25 mmol/L (22-32); Chloride 106 mmol/L (98-107); Cholesterol 214 mg/dL (140-199); Estimated Glomerular Filt Rate > 60.0 mL/min (>60); Globulin 2.5 g/dL (1.7-4.1); Glucose 152 mg/dL (70-100); HDL Cholesterol 32 mg/dL (40-60); HEMOLYSIS < 15 (0-50); LDL Cholesterol Calculated 156 mg/dL (<100); Potassium 4.8 mmol/L (3.4-5.1); Sodium 138 mmol/L (137-145); Triglycerides 130 mg/dL (35-150)
[2020-02-12 12:03] LABS: D Dimer 1497 ng/mL (<230)
[2020-02-12 12:06] LABS: Microalbumin Urine Random 2.2 mg/dL (0-1.6)
[2020-02-12 12:42] LABS: Thyroid Stimulating Hormone 1.26 uIU/mL (0.47-4.68)
== END ==
PROVIDERS: PCP Family Medicine; Referring Provider Physician Assistant; Visit Provider Physician Assistant
DX: E78.2 Mixed hyperlipidemia (principal); I10 Essential (primary) hypertension; I48.91 Unspecified atrial fibrillation; R06.00 Dyspnea, unspecified
CPT/HCPCS: 36415; 80053; 80061; 82043; 82570; 84443; 85379

== ENCOUNTER 2020-02-12 13:32 | Emergency (ER) | payer OTHER, SELFPAY ==
[2019-04-22 19:01] VITALS: BMI 30.8
[2020-02-12 13:38] VITALS: BP 144/102; PULSE 84; RESP 12; TEMP 36.3; O2SAT 99; BMI 30.8
--- NOTE | 2020-02-12 13:52 | DI.RAD.S_ITS ---
PROCEDURE: XR CHEST 2V INDICATIONS: shortness of breath TECHNIQUE: 2 views of the chest were acquired. COMPARISON: [facility], , CHEST 1 VIEW, 11/30/2016, 18:09. FINDINGS: Surgical changes and devices: None. Lungs and pleura: Mild increased perihilar interstitial markings are present. There is increased attenuation at the right costophrenic angle. No large effusion or pneumothorax is evident. No definite area of significant pulmonary consolidation is appreciated. Mediastinum: Mediastinal contours are normal. The heart is enlarged. Bones and chest wall: No suspicious bony abnormalities. Soft tissues appear unremarkable. IMPRESSION: 1. Cardiomegaly with mild vascular congestion. 2. Probable atelectasis at the right costophrenic angle versus a trace effusion or less likely superimposed pneumonia. Please correlate clinically. Dictated by: Willian Anthony M.D. on 02/12/2020 at 13:18 Approved by: Willian Anthony M.D. on 02/12/2020 at 13:23
--- NOTE | 2020-02-12 14:39 | DI.CT.S_ITS ---
PROCEDURE: CT ANGIO CHEST PE PROTOCOL INDICATIONS: sob with + dimer TECHNIQUE: After the administration of intravenous contrast, 2 mm thick sections acquired from the pulmonary apices to the posterior costophrenic angles. 3-dimensional maximum intensity projection (MIP) coronal and sagittal reformats were then acquired through the thorax. For radiation dose reduction, the following was used: automated exposure control, adjustment of mA and/or kV according to patient size. COMPARISON: None. FINDINGS: Image quality: Diagnostic. Pulmonary arteries: Pulmonary arteries are normal in size, and demonstrate no intraluminal filling defects to suggest central pulmonary embolism. Lungs and pleura: There are small moderate sized bilateral pleural effusions (right greater than left). Bronchial wall thickening is noted within the bilateral lower lobes (right more than left). There is a vague area of groundglass attenuation identified within the left suprahilar region (image 51, series 4). Minimal areas of atelectasis and ground glass attenuation are evident within the bilateral lung bases. There also is associated intralobular septal thickening at the lung bases suggesting mild edema. Similar appearance may be present within it the lung apices. There is no lung mass or definite pulmonary nodule. Mediastinum: The heart is enlarged, which appears to involve both chambers. There is no pericardial effusion. No definite coronary artery atherosclerotic calcifications are present. The thoracic aorta is normal in course and caliber. No mediastinal mass or lymphadenopathy is evident. However, there are multiple small to moderate-sized lymph nodes identified within the mediastinum, best appreciated within the subcarinal region and the aortopulmonary window. There are also mildly prominent lymph nodes within the bilateral hilar regions. The esophagus is normal in course and caliber. There is a small hiatal hernia. Bones and chest wall: No suspicious bony lesions. Ribs and thoracic spine appear intact throughout. Age-appropriate degenerative changes of the spine are not well characterized. There is a homogeneous calcification identified along the posterior aspect of the greater tuberosity of the humeral head on the right. No axillary or supraclavicular adenopathy. Abdomen: Visualized upper abdominal solid organs appear normal in the early arterial phase of enhancement. IMPRESSION: 1. No evidence of pulmonary emboli. 2. Small moderate sized bilateral effusions and associated mild bibasilar atelectasis with probable superimposed mild bibasilar pulmonary edema.. 3. Infrahilar bronchial wall thickening suggestive of bronchitis and clinical correlation is recommended. 4. Vague groundglass attenuation within the left suprahilar region may be related to infection. Three-month followup CT of the chest is recommended to ensure complete resolution. 5. Cardiomegaly. 6. Mildly prominent hilar and mediastinal lymph nodes are likely reactive. 7. Calcific tendinitis of the right shoulder. 8. Small hiatal hernia. Dictated by: Willian Anthony M.D. on 02/12/2020 at 14:01 Approved by: Willian Anthony M.D. on 02/12/2020 at 14:09
--- NOTE | 2020-02-12 14:48 | ED.SOB ---
HPI - SOB/Dyspnea General Chief Complaint: Shortness of Breath/Dyspnea Stated Complaint: shortness of breath,possible blood clot Time Seen by Provider: 02/12/20 13:51 Source: patient Mode of arrival: Ambulatory Limitations: no limitations History of Present Illness HPI Narrative: Patient is a 54-year-old male who presents with shortness of breath ongoing for the last 3 weeks but progressively worse over the last week. He says he was initially able to ride his bike he would have some shortness of breath at the beginning but was always able to the continue however over the last week he has not been able to exercise due to severe shortness of breath. He has not traveled anywhere no recent surgeries no known cancer, no significant calf or leg pain. He had some outpatient blood work which showed extremely elevated D-dimer and he has new onset atrial fibrillation. Concern is for pulmonary embolism he has been sent to the ER for further evaluation MD Complaint: shortness of breath Severity: moderate Consistency/Duration: constant Relieving factors: nothing Related Data Home Medications Medication Instructions Recorded Confirmed vitamin K2 1,000 mcg PO DAILY #0 02/20/12 02/12/20 vitamin E 400 unit PO DAILY #0 10/28/12 02/12/20 losartan [Cozaar] 25 mg PO QPM 04/10/19 02/12/20 Previous Rx's Medication Instructions Recorded tamsulosin [Flomax] 0.4 mg PO DAILY #7 cap 04/23/19 albuterol sulfate 90 mcg/actuation 2 puff INHALATION Q6H PRN #8.5 gram 02/03/20 aerosol inhaler levalbuterol tartrate 45 2 puff INHALATION Q4-6H PRN #15 02/06/20 mcg/actuation aerosol inhaler gram montelukast 10 mg tablet 10 mg PO QPM #30 tab 02/06/20 aspirin 81 mg tablet,delayed 81 mg PO DAILY #100 tab 02/12/20 release furosemide [Lasix] 20 mg PO DAILY #3 tab 02/12/20 metoprolol tartrate 12.5 mg PO BID #30 tab 02/12/20 Allergies Allergy/AdvReac Type Severity Reaction Status Date / Time erythromycin base Allergy Severe Nausea - Verified 02/12/20 09:38 childhood Review of Systems Review of Systems Narrative: GENERAL: Denies chills, fatigue, malaise, fever, sweats, travel HEENT: Denies sinus pain, ear pain, sore throat, difficulty swallowing, neck pain RESPIRATORY: See HPI CARDIOVASCULAR: Denies chest pain, palpitations, orthopnea, edema GASTROINTESTINAL: Denies nausea, vomiting, abdominal pain, diarrhea, constipation, melena. : Denies dysuria, frequency, incontinence, hematuria, urinary retention, flank pain. MUSCULOSKELETAL: Denies weakness, joint pain, or bony pain SKIN: No rash, no erythema, no pruritus NEUROLOGIC: Denies weakness, dizziness, headache, numbness, change in speech, confusion PSYCHIATRIC: No concerning psychosocial issues. 12 point review of systems is negative except for those stated above and HPI Patient History Medical History Ankle pain (Chronic 2011) Anxiety (Chronic) Asthma (Acute) Asymptomatic PVCs (Acute) Chest pain (Inactive) Chicken pox (Resolved) Cleft palate and cleft lip (Acute) Foot pain (Chronic 2011) Hiatal hernia (Acute) HLD (hyperlipidemia) (Acute) Hypertension (Chronic 1992) Osteoporosis (Chronic 2013) Pre-diabetes (Acute) Shoulder pain (Chronic 2002) Sleep apnea (Acute) SVT (supraventricular tachycardia) (Acute) Surgical History Anesthesia (Resolved) H/O vasectomy (Acute) History of arthroscopy of both knees (Acute) Hx of appendectomy (Acute) Hx of hernia repair (Acute) Hx of tonsillectomy (Acute) Status post appendectomy (Resolved 1996) Status post hernia repair (Resolved) Family History Father No problems noted. Mother No problems noted. Social History marital status: household members: spouse and children Smoking Status: Former smoker alcohol intake: current substance use type: does not use Smoking Status: Former smoker alcohol intake frequency: a few times a month Substance Use Type: does not use Exam Initial Vital Signs Initial Vital Signs: Vital Signs Temperature 97.3 F L 02/12/20 13:38 Pulse Rate 84 02/12/20 13:38 Respiratory Rate 12 02/12/20 13:38 Blood Pressure 144/102 H 02/12/20 13:38 Pulse Oximetry 99 02/12/20 13:38 GENERAL: Well-appearing, well-nourished and in no acute distress. HEENT: Head atraumatic,EOMI, pupils reactive, face symmetric, CARDIOVASCULAR: Regular rate and rhythm without murmurs, rubs or gallops. RESPIRATORY: Breath sounds equal bilaterally, no wheezes rales or rhonchi. ABDOMEN: Soft, nontender. Normoactive bowel sounds all 4 quadrants. No guarding or rebound. EXTREMITIES: Normal range of motion, no clubbing or edema. Neurovascularly intact NEUROLOGICAL: Alert and oriented x4.Normal gait and speech. SKIN: Warm, dry, no laceration, no petechiae, no rashes or lesions. Scores CHADS-VASc Congestive heart failure: no Hypertension: yes Age 75 years or older: no Diabetes mellitus: no Stroke, TIA, or TE: no Vascular disease: no Age 65 to 74 years: no Sex category (female): Male CHADS-VASc Score: 1 Course Orders Ordered: ED Orders 02/12/20 13:52 XR chest 2V Stat EKG-12 Lead Stat 02/12/20 14:39 CT angio chest PE protocol Stat 02/12/20 14:45 Complete Blood Count AUTO DIFF Stat Comprehensive Metabolic Panel Stat NT-proBNP (BNP-Adult 18+) Stat Prothrombin Time INR Stat Troponin & CK Cardiac Panel Stat 02/12/20 15:37 Partial Thromboplastin Time Stat Prothrombin Time INR Stat Discontinued Medications Furosemide (Lasix) 20 mg IV NOW ONE Stop: 02/12/20 15:58 Last Admin: 02/12/20 16:23 Dose: 20 mg Documented by: ANTOINE Metoprolol Tartrate (Lopressor) 5 mg IV NOW ONE Stop: 02/12/20 15:58 Last Admin: 02/12/20 16:20 Dose: 5 mg Documented by: ANTOINE Consultations Consultation #1: Dr. Kamara updated on the patient's symptoms and test results. Agrees with outpatient workup of echocardiogram started on aspirin based on chads and metoprolol. Time: 16:25 Vital Signs Vital signs: Vital Signs - 8 hr 02/12/20 13:38 02/12/20 15:00 02/12/20 16:00 Temperature 97.3 F L Pulse Rate 84 106 H 105 H Respiratory Rate 12 22 18 Blood Pressure 144/102 H Blood Pressure [Left Arm] 126/91 H Blood Pressure [Right Arm] 125/83 Pulse Oximetry 99 98 98 02/12/20 16:52 Temperature Pulse Rate 88 Respiratory Rate 16 Blood Pressure 126/72 Blood Pressure [Left Arm] Blood Pressure [Right Arm] Pulse Oximetry 95 MDM - SOB/Dyspnea Lab Data Attestation: I reviewed the patient's lab results. Result diagrams: 02/12/20 14:45 02/12/20 14:45 Labs: Lab Results 02/12/20 02/12/20 02/12/20 Range/Units 14:45 14:45 14:45 WBC 8.8 (4.5-11.0) X10^3/uL RBC 4.99 (4.5-5.9) X10^6/uL Hgb 15.7 (13.5-17.5) g/dL Hct 45.6 (41-53) % MCV 91.3 (80-100) fL MCH 31.5 (26-34) PG MCHC 34.5 (30-36) % RDW 14.7 (11.6-14.8) % Plt Count 240 (150-400) X10^3/uL Neut % (Auto) 70.5 (50-75) % Lymph % (Auto) 21.1 L (25-40) % [place] % (Auto) 6.6 (3-14) % Eos % (Auto) 0.7 L (2-4) % Baso % (Auto) 1.1 (0-2) % Neut # (Auto) 6200 (9158-1067) /uL Lymph # (Auto) 1900 (8253-5912) /uL [place] # (Auto) 600 (0-900) /uL Eos # (Auto) 100 (0-450) /uL Baso # (Auto) 100 (0-100) /uL PT 13.1 H (10.1-12.7) SECONDS INR 1.1 (0.9-1.3) APTT (26.4-36.2) SECONDS Sodium 138 (137-145) mmol/L Potassium 4.3 (3.4-5.1) mmol/L Chloride 107 (98-107) mmol/L Carbon Dioxide 22 (22-32) mmol/L BUN 21 H (9-20) mg/dL Creatinine 1.10 (0.66-1.25) mg/dL Estimated GFR > 60.0 (>60) mL/min BUN/Creatinine Ratio 19.1 (6-22) Glucose 130 H (70-100) mg/dL Calcium 9.4 (8.4-10.2) mg/dL Total Bilirubin 1.0 (0.2-1.3) mg/dL AST 43 (17-59) IU/L ALT 54 H (<50) IU/L Alkaline Phosphatase 48 (38-126) U/L Total Creatine Kinase 81 (55-170) U/L CK-MB (CK-2) TNP CK-MB (CK-2) Rel Index TNP Troponin I 0.049 H (0.01-0.034) ng/mL NT-Pro-B Natriuret Pep (<125) pg/mL Total Protein 6.7 (6.3-8.2) g/dL Albumin 4.2 (3.5-5.0) g/dL Globulin 2.5 (1.7-4.1) g/dL Albumin/Globulin Ratio 1.7 (1.0-2.8) 02/12/20 02/12/20 Range/Units 14:45 15:37 WBC (4.5-11.0) X10^3/uL RBC (4.5-5.9) X10^6/uL Hgb (13.5-17.5) g/dL Hct (41-53) % MCV (80-100) fL MCH (26-34) PG MCHC (30-36) % RDW (11.6-14.8) % Plt Count (150-400) X10^3/uL Neut % (Auto) (50-75) % Lymph % (Auto) (25-40) % [place] % (Auto) (3-14) % Eos % (Auto) (2-4) % Baso % (Auto) (0-2) % Neut # (Auto) (7257-6654) /uL Lymph # (Auto) (9188-3681) /uL [place] # (Auto) (0-900) /uL Eos # (Auto) (0-450) /uL Baso # (Auto) (0-100) /uL PT 12.8 H (10.1-12.7) SECONDS INR 1.1 (0.9-1.3) APTT 32 (26.4-36.2) SECONDS Sodium (137-145) mmol/L Potassium (3.4-5.1) mmol/L Chloride (98-107) mmol/L Carbon Dioxide (22-32) mmol/L BUN (9-20) mg/dL Creatinine (0.66-1.25) mg/dL Estimated GFR (>60) mL/min BUN/Creatinine Ratio (6-22) Glucose (70-100) mg/dL Calcium (8.4-10.2) mg/dL Total Bilirubin (0.2-1.3) mg/dL AST (17-59) IU/L ALT (<50) IU/L Alkaline Phosphatase (38-126) U/L Total Creatine Kinase (55-170) U/L CK-MB (CK-2) CK-MB (CK-2) Rel Index Troponin I (0.01-0.034) ng/mL NT-Pro-B Natriuret Pep 2040 H (<125) pg/mL Total Protein (6.3-8.2) g/dL Albumin (3.5-5.0) g/dL Globulin (1.7-4.1) g/dL Albumin/Globulin Ratio (1.0-2.8) MDM Narrative Medical decision making narrative: took asa prior to arrival. Patient's chads score low and he is young. Will give him aspirin daily start him on metoprolol small dose and couple days of Lasix to help with diuresis. He will have an outpatient echocardiogram which has been arranged by his PCP. He currently is not hypoxic and is ambulatory to the restroom without difficulty. Discharge Plan Departure Patient Disposition: Home Clinical Impression: Atrial fibrillation Qualifiers: Atrial fibrillation type: unspecified Qualified Code(s): I48.91 - Unspecified atrial fibrillation Discharge Date/Time: 02/12/20 16:52 Instructions: Atrial Fibrillation Activity Restrictions/Additional Instructions: *You have been diagnosed with atrial fibrillation *What to do: You have new onset atrial fibrillation. With this arrhythmia you are at risk for stroke. Please take aspirin 81 mg once a. He will also need further workup echocardiogram which can be scheduled with Dr. Jimenes *Continue to take medications as directed Aspirin 81 mg once a day Lasix 20mg once a day for 3 days Metoprolol 12.5mg bid-->SENT TO [facility] *Follow up with your primary care provider in 2-3 days *Return to ER if you should have increasing shortness of breath increasing chest pain or heart palpitations dizziness or any new, worsening or concerning symptoms Prescriptions: New metoprolol tartrate 25 mg tablet 12.5 mg PO BID Qty: 30 RF: 0 furosemide [Lasix] 20 mg tablet 20 mg PO DAILY Qty: 3 RF: 0 No Action levalbuterol tartrate 45 mcg/actuation HFA aerosol inhaler 2 puff INHALATION Q4-6H PRN (Reason: shortness of breath or wheezing) Qty: 15 RF: 0 montelukast 10 mg tablet 10 mg PO QPM Qty: 30 RF: 0 aspirin [Adult Aspirin Regimen] 81 mg tablet,delayed release (DR/EC) 81 mg PO DAILY Qty: 100 RF: 3 vitamin K2 40 mcg Tablet 1,000 mcg PO DAILY Qty: 0 RF: 0 vitamin E 400 unit Capsule 400 unit PO DAILY Qty: 0 RF: 0 albuterol sulfate 90 mcg/actuation HFA aerosol inhaler 2 puff INHALATION Q6H PRN (Reason: shortness of breath or wheezing) Qty: 8.5 RF: 1 losartan [Cozaar] 25 mg tablet 25 mg PO QPM RF: 0 tamsulosin [Flomax] 0.4 mg capsule 0.4 mg PO DAILY Qty: 7 RF: 0 Referrals: Kp Jimenes MD [Primary Care Provider] -
[2020-02-12 14:50] LABS: Add Manual Diff / Slide Review NO; Basophils Absolute Auto 100 /uL (0-100); Basophils Percent Auto 1.1 % (0-2); Eosinophils Absolute Auto 100 /uL (0-450); Eosinophils Percent Auto 0.7 % (2-4); Hematocrit 45.6 % (41-53); Hemoglobin 15.7 g/dL (13.5-17.5); Lymphocytes Absolute Auto 1900 /uL (1100-4500); Lymphocytes Percent Auto 21.1 % (25-40); Mean Corpuscular HGB Conc 34.5 % (30-36); Mean Corpuscular Hemoglobin 31.5 PG (26-34); Mean Corpuscular Volume 91.3 fL (80-100); Monocytes Absolute Auto 600 /uL (0-900); Monocytes Percent Auto 6.6 % (3-14); Neutrophils Absolute Auto 6200 /uL (1500-7000); Neutrophils Percent Auto 70.5 % (50-75); Platelet Count 240 X10^3/uL (150-400); Red Blood Cell Count 4.99 X10^6/uL (4.5-5.9); Red Cell Distribution Width 14.7 % (11.6-14.8); White Blood Cell Count 8.8 X10^3/uL (4.5-11.0)
[2020-02-12 15:00] VITALS: BP 125/83; PULSE 106; RESP 22; O2SAT 98
[2020-02-12 15:01] LABS: Alanine Aminotransferase 54 IU/L (<50); Albumin 4.2 g/dL (3.5-5.0); Albumin Globulin Ratio 1.7 (1.0-2.8); Alkaline Phosphatase 48 U/L (38-126); Aspartate Aminotransferase 43 IU/L (17-59); BUN Creatinine Ratio 19.1 (6-22); Blood Urea Nitrogen 21 mg/dL (9-20); Calcium 9.4 mg/dL (8.4-10.2); Carbon Dioxide 22 mmol/L (22-32); Chloride 107 mmol/L (98-107); Creatine Kinase 81 U/L (55-170); Estimated Glomerular Filt Rate > 60.0 mL/min (>60); Globulin 2.5 g/dL (1.7-4.1); Glucose 130 mg/dL (70-100); HEMOLYSIS 19 (0-50); Potassium 4.3 mmol/L (3.4-5.1); Sodium 138 mmol/L (137-145); Total Protein 6.7 g/dL (6.3-8.2)
[2020-02-12 15:02] LABS: INR 1.1 (0.9-1.3); Prothrombin Time 13.1 SECONDS (10.1-12.7)
[2020-02-12 15:13] LABS: Troponin I 0.049 ng/mL (0.01-0.034)
[2020-02-12 15:50] LABS: INR 1.1 (0.9-1.3); Prothrombin Time 12.8 SECONDS (10.1-12.7)
[2020-02-12 15:52] LABS: NT-proBNP (BNP-Adult 18+) 2040 pg/mL (<125)
[2020-02-12 15:53] LABS: PTT Partial Thromboplastin Tim 32 SECONDS (26.4-36.2)
[2020-02-12 16:00] VITALS: BP 126/91; PULSE 105; RESP 18; O2SAT 98
[2020-02-12] MEDS: METOPROLOL TARTRATE 5 MG/5 ML INJ IV (16:20)
[2020-02-12] MEDS: FUROSEMIDE 20 MG/2 ML VIAL IV (16:23)
[2020-02-12 16:52] VITALS: BP 126/72; PULSE 88; RESP 16; O2SAT 95
== END 2020-02-12 16:52 | disposition home or self-care (01) ==
PROVIDERS: Emergency Provider Emergency Medicine; PCP Family Medicine
DX: I48.91 Unspecified atrial fibrillation (principal)
CPT/HCPCS: 36415; 71046; 71275; 80053; 82550; 83880; 84484; 85025; 85610; 85730; 93005; 96374; 96375; 99285; J1940; Q9967

== ENCOUNTER → 2020-05-10 10:03 | Outpatient (CLI) | payer OTHER, SELFPAY ==
[2019-04-22 19:01] VITALS: BMI 30.8
--- NOTE | 2020-05-10 10:16 | DI.CT.S_ITS ---
PROCEDURE: CT CHEST WO CON INDICATIONS: [address] TECHNIQUE: Noncontrast 2.0-2.5 mm thick sections acquired from the pulmonary apices to the posterior costophrenic angles. 7 mm thick axial MIP and 5 mm coronal and sagittal reformats were then acquired. A low radiation dose technique was utilized. COMPARISON: [facility], CT, CT ANGIO CHEST PE PROTOCOL, 02/12/2020, 14:35. FINDINGS: Image quality: Diagnostic, given the low radiation dose technique. Lungs and pleura: Interval resolution of previously described vague ground-glass attenuation the left suprahilar region. Scattered subsegmental atelectasis and/or scarring. No focal consolidation. Airway thickening in keeping with nonspecific bronchitis and/or reactive airways disease. Mediastinum: Heart size is normal. No pericardial effusion. No mediastinal adenopathy by size criteria. Thoracic aorta and central pulmonary arteries are normal in size. Esophagus is normal in caliber. No hiatal hernia. Bones and chest wall: No vertebral body compression fracture. Spondylytic changes and facet arthropathy. No axillary or supraclavicular adenopathy by size criteria. Thyroid gland negative . Abdomen: Visualized upper abdomen solid organs and bowel loops appear normal in the absence of contrast. IMPRESSION: Interval resolution of previously described left suprahilar ground-glass attenuation. Fleischner Society criteria for SOLID lung nodule followup. Nodule size (mm)Low-risk patientHigh-risk patient<6 (single or multiple)No routine followup.Optional CT at 12 months. 6-8 (single or multiple)CT at 6-12 months, then optional CT at 18-24 mo.CT at 6-12 months, then CT at 18-24 months. >8 (single)CT at 3 months, PET-CT, or biopsy. Same as for low-risk pts. >8 (multiple)CT at 3-6 months, then optional CT at 18-24 mo.CT at 3-6 months, then CT at 18-24 months. Fleischner Society criteria for SUB-SOLID lung nodule followup. Solitary pure ground-glass nodules<6 mm (ground glass or part solid)No followup needed. 6 mm or larger (ground glass)CT at 6-12 months to confirm persistence, then CT every 2 years until 5 years.6 mm or larger (part solid)CT at 3-6 months to confirm persistence, then annual CT until 5 years if unchanged and solid component remains <6 mm. Multiple sub-solid nodules<6 mmCT at 3-6 months, then CT consider at 2 & 4 years for high risk patients. [address] at 3-6 months. Subsequent management based on most suspicious lesions. Recommendations do not apply to lung cancer screening, patients with immunosuppression, or patients with known primary cancer. Dictated by: Jason Cooper M.D. on 05/10/2020 at 12:27 Approved by: Jason Cooper M.D. on 05/10/2020 at 12:40
== END ==
PROVIDERS: PCP Family Medicine; Referring Provider Family Medicine; Visit Provider Family Medicine
DX: R93.89 Abnormal findings on diagnostic imaging of other specified body structures (principal)
CPT/HCPCS: 71250

== ENCOUNTER → 2020-11-26 12:45 | Outpatient (CLI) | payer OTHER, SELFPAY ==
[2019-04-22 19:01] VITALS: BMI 30.8
[2020-11-26] MEDS: COVID-19 VACC, Ad26(JANSSEN)/PF 0.5 ML IM (12:56)
== END ==
PROVIDERS: PCP Family Medicine; Visit Provider Internal Medicine
DX: Z23 Encounter for immunization (principal)
CPT/HCPCS: 0031A; 91303

== ENCOUNTER → 2021-09-28 10:54 | Outpatient (CLI) | payer OTHER, SELFPAY ==
[2021-05-16 12:00] VITALS: BMI 30.8
[2021-09-28 13:08] LABS: Hemoglobin A1C% w Est Avg Glu 7.4 % (4.0-6.0)
[2021-09-29 06:12] LABS: Thyroid Peroxidase Antibodies <8 IU/mL (0-34)
[2021-09-29 20:10] LABS: Anti Thyroglobulin Antibody <1.0 IU/mL (0.0-0.9)
== END ==
PROVIDERS: PCP Family Medicine; Referring Provider Physician Assistant; Visit Provider Physician Assistant
DX: E05.90 Thyrotoxicosis, unspecified without thyrotoxic crisis or storm (principal); E11.9 Type 2 diabetes mellitus without complications
CPT/HCPCS: 36415; 83036; 86376; 86800

== ENCOUNTER → 2021-10-13 09:40 | Outpatient (CLI) | payer OTHER, SELFPAY ==
[2021-05-16 12:00] VITALS: BMI 30.8
--- NOTE | 2021-10-13 09:43 | DI.US.S_ITS ---
PROCEDURE: US THYROID INDICATIONS: NEW ONSET HYPERTHYROIDISM, POSSIBLE ENLARGED R LOBE VS NODUL TECHNIQUE: Real-time scanning was performed of the thyroid gland, with image documentation. COMPARISON: None. FINDINGS: Right: Thyroid lobe measures 4.6 x 1.7 x 1.5 cm, and is heterogeneous in echotexture. Left: Thyroid lobe measures 5.1 x 1.5 x 1.5 cm, and is heterogeneous in echotexture. Isthmus: 4 mm thick. Nodule number: 1 Location: Right superior Size: 0.5 x 0.3 x 0.5 cm. Composition: Spongiform Echogenicity: Mixed hyperechoic and hypoechoic Shape: wider than tall. Margins: Small thin Echogenic foci: None Total points: 1 ACR TI-RADS category: 1 IMPRESSION: 1. Mild thyromegaly with heterogeneous echotexture. 2. A small benign appearing thyroid nodule in the superior pole of the right thyroid lobe. ACR TI-RADS definitions and recommendations: TI-RADS 1 (benign): 0 points. FNA not needed. TI-RADS 2 (not suspicious): 2 points. FNA not needed. TI-RADS 3 (mildly suspicious): 3 points. * FNA if 2.5 cm or larger, follow up if 1.5 cm or larger (at 1, 3, and 5 years). TI-RADS 4 (moderately suspicious): 4-6 points. * FNA if 1.5 cm or larger, follow up if 1 cm or larger (at 1, 2, 3, and 5 years). TI-RADS 5 (highly suspicious): 7 points or more. * FNA if 1 cm or larger, follow up if 0.5 cm or larger (every year for 5 years). Dictated by: Dilia Skaggs M.D. on 10/13/2021 at 11:09 Approved by: Dilia Skaggs M.D. on 10/13/2021 at 11:13
== END ==
PROVIDERS: PCP Family Medicine; Referring Provider Physician Assistant; Visit Provider Physician Assistant
DX: E05.90 Thyrotoxicosis, unspecified without thyrotoxic crisis or storm (principal); E04.1 Nontoxic single thyroid nodule
CPT/HCPCS: 76536

== ENCOUNTER → 2022-01-11 11:26 | Outpatient (CLI) | payer OTHER, SELFPAY ==
[2021-05-16 12:00] VITALS: BMI 30.8
[2022-01-11 12:06] LABS: Hemoglobin A1C% w Est Avg Glu 6.7 % (4.0-6.0)
[2022-01-11 12:42] LABS: TSH w/ Reflex to FT4 1.53 uIU/mL (0.47-4.68)
== END ==
PROVIDERS: PCP Family Medicine; Referring Provider Physician Assistant; Visit Provider Physician Assistant
DX: E04.1 Nontoxic single thyroid nodule (principal); E05.90 Thyrotoxicosis, unspecified without thyrotoxic crisis or storm; E11.9 Type 2 diabetes mellitus without complications
CPT/HCPCS: 36415; 83036; 84443

== ENCOUNTER → 2022-02-08 11:45 | Outpatient (CLI) | payer OTHER, SELFPAY ==
[2021-05-16 12:00] VITALS: BMI 30.8
[2022-02-08 14:10] LABS: TSH w/ Reflex to FT4 1.72 uIU/mL (0.47-4.68)
== END ==
PROVIDERS: PCP Family Medicine; Referring Provider Physician Assistant; Visit Provider Physician Assistant
DX: E05.90 Thyrotoxicosis, unspecified without thyrotoxic crisis or storm (principal); I48.91 Unspecified atrial fibrillation
CPT/HCPCS: 36415; 84443

== ENCOUNTER → 2022-04-17 11:41 | Outpatient (CLI) | payer OTHER, SELFPAY ==
[2021-05-16 12:00] VITALS: BMI 30.8
[2022-04-17 13:04] LABS: Hemoglobin A1C% w Est Avg Glu 6.6 % (4.0-6.0)
[2022-04-17 13:55] LABS: Cholesterol 253 mg/dL (140-199); HDL Cholesterol 45 mg/dL (40-60); LDL Cholesterol Calculated 182 mg/dL (<100); Triglycerides 128 mg/dL (35-150)
[2022-04-17 15:59] LABS: Creatinine Urine Random 44.4 mg/dL
[2022-04-17 16:01] LABS: Microalbumin Urine Random < 0.6 mg/dL (0-1.6)
== END ==
PROVIDERS: PCP Family Medicine; Referring Provider Family Medicine; Visit Provider Family Medicine
DX: E11.9 Type 2 diabetes mellitus without complications (principal)
CPT/HCPCS: 36415; 80061; 82043; 82570; 83036

== ENCOUNTER → 2022-09-07 12:17 | Outpatient (CLI) | payer OTHER, SELFPAY ==
[2021-05-16 12:00] VITALS: BMI 30.8
[2022-09-07 14:08] LABS: Hemoglobin A1C% w Est Avg Glu 6.4 % (4.0-6.0)
== END ==
PROVIDERS: PCP Family Medicine; Referring Provider Family Medicine; Visit Provider Family Medicine
DX: E11.9 Type 2 diabetes mellitus without complications (principal)
CPT/HCPCS: 36415; 83036

== ENCOUNTER → 2023-01-19 12:55 | Outpatient (CLI) | payer OTHER, SELFPAY ==
[2021-05-16 12:00] VITALS: BMI 30.8
[2023-01-19 14:00] LABS: Alanine Aminotransferase 27 IU/L (<50); Albumin 4.7 g/dL (3.5-5.0); Albumin Globulin Ratio 1.6 (1.0-2.8); Alkaline Phosphatase 62 U/L (38-126); Aspartate Aminotransferase 36 IU/L (17-59); BUN Creatinine Ratio 18.4 (6-22); Bilirubin Total 0.9 mg/dL (0.2-1.3); Blood Urea Nitrogen 18 mg/dL (9-20); Calcium 9.2 mg/dL (8.4-10.2); Carbon Dioxide 26 mmol/L (22-32); Chloride 102 mmol/L (98-107); Cholesterol 264 mg/dL (140-199); Estimated Glomerular Filt Rate > 60 mL/min (>60); Globulin 2.9 g/dL (1.7-4.1); Glucose 114 mg/dL (70-100); HDL Cholesterol 44 mg/dL (40-60); HEMOLYSIS < 15 (0-50); LDL Cholesterol Calculated 190 mg/dL (<100); Sodium 137 mmol/L (137-145); Total Protein 7.6 g/dL (6.3-8.2); Triglycerides 152 mg/dL (35-150)
[2023-01-19 14:30] LABS: Thyroid Stimulating Hormone 3.71 uIU/mL (0.47-4.68)
[2023-01-19 14:38] LABS: Creatinine Urine Random 50.1 mg/dL
[2023-01-19 14:57] LABS: Microalbumin Urine Random < 0.6 mg/dL (0-1.6)
[2023-01-20 05:29] LABS: Labcorp Hemoglobin (Hb) A1c 6.4 % (4.8-5.6)
== END ==
PROVIDERS: PCP Family Medicine; Referring Provider Physician Assistant; Visit Provider Physician Assistant
DX: E11.9 Type 2 diabetes mellitus without complications (principal); I10 Essential (primary) hypertension; E78.5 Hyperlipidemia, unspecified; E05.90 Thyrotoxicosis, unspecified without thyrotoxic crisis or storm; E66.9 Obesity, unspecified
CPT/HCPCS: 80053; 80061; 82043; 82570; 83036; 84443

== ENCOUNTER → 2023-12-12 15:52 | Outpatient (CLI) | payer OTHER, SELFPAY ==
[2021-05-16 12:00] VITALS: BMI 30.8
--- NOTE | 2023-12-12 15:55 | DI.RAD.S_ITS ---
PROCEDURE: XR LUMBAR SPINE MIN 4V INDICATIONS: Persistent low back pain and weakness in lower extremities TECHNIQUE: 5 views of the lumbar spine were acquired, including bilateral oblique views. COMPARISON: [facility], CR, XR LUMBAR SPINE 2-3V, 12/02/2018, 10:24. FINDINGS: Bones: Mild retrolisthesis of L2 on L3. Vertebral body height of the lumbar spine is well maintained. Multilevel degenerative changes of the lumbar spine, most pronounced and moderate at L5-S1, unchanged from prior exam. Moderate lower lumbar facet arthropathy. Surgical clips project over the right iliac crest. Interval left hip arthroplasty. IMPRESSION: Degenerative changes as described above, grossly unchanged from prior exam. Dictated by: Susanne Buck M.D. on 12/12/2023 at 18:10 Approved by: Susanne Buck M.D. on 12/12/2023 at 18:13
--- NOTE | 2023-12-12 15:55 | DI.RAD.S_ITS ---
PROCEDURE: XR KNEE RT 3V INDICATIONS: Right knee pain TECHNIQUE: 3 views of the knee were acquired. COMPARISON: None. FINDINGS: Bones: [id number] medial compartment predominant tricompartment osteoarthritis of the right knee. Small right knee effusion. No acute fracture or dislocation. Small distal quadriceps enthesophyte. IMPRESSION: Small right knee effusion. Degenerative changes as described above. Dictated by: Susanne Buck M.D. on 12/12/2023 at 18:08 Approved by: Susanne Buck M.D. on 12/12/2023 at 18:10
--- NOTE | 2023-12-12 15:55 | DI.RAD.S_ITS ---
PROCEDURE: XR KNEE LT 3V INDICATIONS: Left knee pain TECHNIQUE: 3 views of the knee were acquired. COMPARISON: None. FINDINGS: Bones: Mild to moderate, medial compartment predominant tricompartment osteoarthritis of the left knee. No left knee effusion. No acute fracture or dislocation. IMPRESSION: Degenerative changes as described above. Dictated by: Susanne Buck M.D. on 12/12/2023 at 18:06 Approved by: Susanne Buck M.D. on 12/12/2023 at 18:08
== END ==
PROVIDERS: PCP Family Medicine; Referring Provider Physician Assistant; Visit Provider Physician Assistant
DX: M47.817 Spondylosis without myelopathy or radiculopathy, lumbosacral region (principal); M47.816 Spondylosis without myelopathy or radiculopathy, lumbar region; M43.16 Spondylolisthesis, lumbar region; M54.50 Low back pain, unspecified; R29.898 Other symptoms and signs involving the musculoskeletal system; M17.0 Bilateral primary osteoarthritis of knee; M25.561 Pain in right knee; M25.562 Pain in left knee; M25.461 Effusion, right knee
CPT/HCPCS: 72110; 73562

== ENCOUNTER → 2024-01-02 10:54 | Outpatient (CLI) | payer OTHER, SELFPAY ==
[2021-05-16 12:00] VITALS: BMI 30.8
[2024-01-02 11:51] LABS: Hemoglobin A1C% w Est Avg Glu 6.9 % (4.0-6.0)
[2024-01-02 12:10] LABS: Alanine Aminotransferase 21 IU/L (<50); Albumin 4.8 g/dL (3.5-5.0); Albumin Globulin Ratio 1.9 (1.0-2.8); Alkaline Phosphatase 68 U/L (38-126); Aspartate Aminotransferase 26 IU/L (17-59); BUN Creatinine Ratio 14.4 (6-22); Bilirubin Total 0.7 mg/dL (0.2-1.3); Blood Urea Nitrogen 14 mg/dL (9-20); Calcium 9.5 mg/dL (8.4-10.2); Carbon Dioxide 27 mmol/L (22-32); Chloride 108 mmol/L (98-107); Cholesterol 270 mg/dL (140-199); Estimated Glomerular Filt Rate > 60 mL/min (>60); Globulin 2.5 g/dL (1.7-4.1); Glucose 143 mg/dL (70-100); HDL Cholesterol 47 mg/dL (40-60); HEMOLYSIS < 15 (0-50); LDL Cholesterol Calculated 185 mg/dL (<100); Potassium 4.7 mmol/L (3.4-5.1); Sodium 141 mmol/L (137-145); Total Protein 7.3 g/dL (6.3-8.2); Triglycerides 192 mg/dL (35-150)
[2024-01-02 12:24] LABS: Creatinine Urine Random 16.6 mg/dL
[2024-01-02 12:28] LABS: Microalbumin Urine Random < 0.6 mg/dL (0-1.6)
[2024-01-02 12:42] LABS: TSH w/ Reflex to FT4 2.06 uIU/mL (0.47-4.68)
== END ==
PROVIDERS: PCP Family Medicine; Referring Provider Family Medicine; Visit Provider Family Medicine
DX: E78.5 Hyperlipidemia, unspecified (principal); E05.90 Thyrotoxicosis, unspecified without thyrotoxic crisis or storm; E11.9 Type 2 diabetes mellitus without complications; I50.20 Unspecified systolic (congestive) heart failure; E78.2 Mixed hyperlipidemia; I10 Essential (primary) hypertension; E66.9 Obesity, unspecified
CPT/HCPCS: 36415; 80053; 80061; 82043; 82570; 83036; 84443

== ENCOUNTER → 2024-09-09 11:15 | Outpatient (CLI) | payer OTHER, SELFPAY ==
[2024-08-25 13:00] VITALS: BMI 30.8
[2024-09-09 12:01] LABS: Hemoglobin A1C% w Est Avg Glu 6.3 % (4.0-6.0)
== END ==
PROVIDERS: PCP Family Medicine; Referring Provider Family Medicine; Visit Provider Family Medicine
DX: E11.9 Type 2 diabetes mellitus without complications (principal)
CPT/HCPCS: 36415; 83036

== ENCOUNTER → 2025-06-10 10:57 | Outpatient (CLI) | payer OTHER, SELFPAY ==
[2025-05-28 12:11] VITALS: BMI 30.8
[2025-06-10 11:44] LABS: Add Manual Diff / Slide Review NO; Hematocrit 42.3 % (41-53); Hemoglobin 14.7 g/dL (13.5-17.5); Lymphocytes Absolute Auto 1700 /uL (1100-4500); Mean Corpuscular HGB Conc 34.7 % (30-36); Mean Corpuscular Hemoglobin 32.2 PG (26-34); Mean Corpuscular Volume 92.9 fL (80-100); Platelet Count 255 X10^3/uL (150-400)
[2025-06-10 12:17] LABS: Hemoglobin A1C% w Est Avg Glu 6.4 % (4.0-6.0)
[2025-06-10 12:38] LABS: Alanine Aminotransferase 22 IU/L (<50); Albumin 4.8 g/dL (3.5-5.0); Albumin Globulin Ratio 1.9 (1.0-2.8); Alkaline Phosphatase 73 U/L (38-126); Blood Urea Nitrogen 18 mg/dL (9-20); Calcium 9.3 mg/dL (8.4-10.2); Carbon Dioxide 24 mmol/L (22-32); Chloride 102 mmol/L (98-107); Cholesterol 266 mg/dL (140-199); Estimated Glomerular Filt Rate > 60 mL/min (>60); Globulin 2.5 g/dL (1.7-4.1); Glucose 149 mg/dL (70-99); HDL Cholesterol 46 mg/dL (40-60); HEMOLYSIS < 15 (0-50); Potassium 4.3 mmol/L (3.4-5.1); Sodium 136 mmol/L (137-145); Total Protein 7.3 g/dL (6.3-8.2); Triglycerides 227 mg/dL (35-150)
== END ==
PROVIDERS: PCP Family Medicine; Referring Provider Family Medicine; Visit Provider Family Medicine
DX: E11.9 Type 2 diabetes mellitus without complications (principal); E78.5 Hyperlipidemia, unspecified; I48.91 Unspecified atrial fibrillation; I50.20 Unspecified systolic (congestive) heart failure; E05.90 Thyrotoxicosis, unspecified without thyrotoxic crisis or storm
CPT/HCPCS: 36415; 80053; 80061; 82043; 82570; 83036; 85025